=== PATIENT | male | born 2005 | race Caucasian/White ===

== ENCOUNTER 2023-06-10 10:17 | Emergency (ER) | payer SELFPAY ==
[2023-06-10] MEDS ORDERED: Ondansetron PF 4 MG/2 ML Vial ONE (10:28)
[2023-06-10] MEDS ORDERED: Sodium Chloride 0.9% 1,000 ML ONE (10:28)
[2023-06-10 11:41] LABS: Anion Gap 24 mmol/L (10-20); BUN (Urea Nitrogen) 15 mg/dL (8.9-20.6); Calc. Creatinine Clearance 0 mL/min (70-130); Calcium 8.7 mg/dL (7.8-10.44); Carbon Dioxide 16 mmol/L (22-29); Chloride 106 mmol/L (98-107); Estimated GFR 84; Glucose 153 mg/dL (70-105); Potassium 4.2 mmol/L (3.5-5.1); Sodium 142 mmol/L (136-145)
== END 2023-06-10 14:30 | disposition home or self-care (01) ==
LOC: BURERS 10:17
DX: F10.129 Alcohol abuse with intoxication, unspecified (principal); E16.2 Hypoglycemia, unspecified; E87.21 Acute metabolic acidosis; K21.9 Gastro-esophageal reflux disease without esophagitis; J45.909 Unspecified asthma, uncomplicated; F17.290 Nicotine dependence, other tobacco product, uncomplicated
CPT/HCPCS: 36415; 36416; 80048; 96361; 96374; J2405; J7050